=== PATIENT | male | born 1985 | race Caucasian/White ===

== ENCOUNTER 2020-02-27 16:23 | Emergency (ER) | payer OTHER, SELFPAY ==
[2020-02-27 16:45] VITALS: BP 140/86; PULSE 80; RESP 19; TEMP 36.9; O2SAT 98; BMI 20.3
--- NOTE | 2020-02-27 17:13 | HMH.EDUTC ---
[facility] [place] Disposition Clinical Impression: Abscess or cellulitis of groin Disposition: Home, Self-Care Condition on Discharge: Good Instructions: DI for Cellulitis -- Child, DI for Skin Abscess Additional Instructions: *Start antibiotic(s) immediately and be sure to take as ordered for the FULL length of time although you may be feeling better or start to see improvement in the next 24-48 hours *Monitor closely. Outlined redness so that you can monitor easier. Follow up immediately for new or worsening symptoms including but not limited to redness, swelling, streaking from site fever or chills. *Warm compress 15 minutes 3-4 times day *Never squeeze or pop these on your own. Seek immediate medical attention next time this occurs *Monitor Temp. Tylenol every 4 hours as needed and ibuprofen every 6 hours as needed (as long as your primary care doctor has told you that it is ok to take both. For fever, aches, pain. ER if no less that 101 despite Tylenol and ibuprofen Follow up with your family doctor/primary care physician in the next 48-72 hours if no improvement with your Family Doctor or Surgeon for further evaluation and examination Return if needed Straight to ER if any life threatening symptoms Prescriptions: Sulfamethoxazole/Trimethoprim [Bactrim DS tablet] 1 each PO BID 10 Days #20 tab Transmission Status: Received by [facility] cephALEXin [cephALEXin 500mg capsule*] 500 mg PO Q6H 10 Days #40 cap Transmission Status: Received by [facility] Mupirocin Calcium [Mupirocin 2% Cream 15gm] 1 applicatio TP TID 10 Days #1 tube Transmission Status: Received by [facility] Referrals: PCP,No [Primary Care Provider] - As needed Moi Lutz MD [Staff Physician] - Francis Arredondo MD [Staff Physician] - Forms: Work/School Release Time of Disposition: 17:21 Medical Decision Making - Wayne Inquiry Pt receiving controlled substance: No Wayne was queried for this patient: No Vital Signs: 02/27/20 16:45 02/27/20 17:27 Temperature 98.4 F 98.4 F Temperature Source Oral Pulse Rate 80 Pulse Rate [Right Brachial] 80 Respiratory Rate 19 19 Blood Pressure 140/86 Blood Pressure [Right Arm] 140/86 Blood Pressure Mean [Right Arm] 104 Blood Pressure Source [Right Arm] Automatic Cuff Blood Pressure Position [Right Arm] Sitting 02 Sat by Pulse Oximetry 98 Oxygen Delivery Method Room Air Orders (Tests/Meds): ORDERS Category Date Time Status Wound Culture and Gram Stain Stat Micro 02/27/20 17:00 Results [facility] [place] HPI - General Stated complaint: sore on L leg Time Seen by Provider: 02/27/20 17:13 Mode of Arrival: Ambulatory Source of Information: Patient Limitations: No Limitations Description of Symptoms (Recalled from Triage Doc. by RN): PATIENT C/O RED AREA IN LEFT GROIN AREA X 4 DAYS HEENT Symptoms (Recalled from RN notes): No Resp Symptoms (Recalled from RN notes): No Skin Symptoms (Recalled from RN notes): Yes MS Symptoms (Recalled from RN notes): No Functional Status (Recalled from RN notes): WNL - History of Present Illness Provider Complaint: Patient states that he gets boils and they often pop and go away States that he noticed he had one about 4 days in his left groin area and it has continued to get worse and swelling State that earlier he felt like it may have popped but wanted to get it looked at - Related Data Previous Rx's Medication Instructions Recorded Mupirocin Calcium [Mupirocin 2% 1 applicatio TP TID 10 Days #1 tube 02/27/20 Cream 15gm] Sulfamethoxazole/Trimethoprim 1 each PO BID 10 Days #20 tab 02/27/20 [Bactrim DS tablet] cephALEXin [cephALEXin 500mg 500 mg PO Q6H 10 Days #40 cap 02/27/20 capsule*] Allergies Allergy/AdvReac Type Severity Reaction Status Date / Time No Known Allergies Allergy Verified 02/27/20 17:03 - Worker's Comp Is this a Worker's Comp case?: No [facility] [place] History - Hepatitis A Screen Drug use history?: No High ri
[2020-02-27 17:27] VITALS: BP 140/86; PULSE 80; RESP 19; TEMP 36.9; O2SAT 98
== END 2020-02-27 17:30 | disposition home or self-care (01) ==
PROVIDERS: Emergency Provider Nurse Practitioner
DX: L02.214 Cutaneous abscess of groin (principal)
CPT/HCPCS: 87070; 87077; 87186; 87205; 99202; G0463